=== PATIENT | female | born 1995 | race Caucasian/White ===

== ENCOUNTER 2019-05-08 17:11 | Emergency (ER) | payer BC ==
[2019-05-08 17:24] VITALS: BP 153/91
[2019-05-08] MEDS ORDERED: Ibuprofen TAB* 600 MG PO ONE (17:32)
--- NOTE | 2019-05-08 17:33 | ED ---
Lower Extremity - HPI Summary HPI Summary: 23 yr old female with the complaint of left knee pain. Onset of pain was . She states she does not know a specific event that caused this, but years ago she injured the same knee on a hay wagon, but it got better on its own. She states she does a lot of bending and squatting at work at times. She state the pain in the left knee has gotten worse over the past 5 days. She has increased swelling most notably in the suprpatellar area and to the lateral area of the knee. no bruising, No redness. She feels the outside of the knee is slightly warm. She has no real pain walking on her knee, but she has some pain with flexion of the left knee, and she hears an occasional clicking with flexion and extending. She has no other complaints. - History of Current Complaint Chief Complaint: UCLowerExtremity Stated Complaint: LEFT KNEE COMPLAINT Time Seen by Provider: 05/08/19 17:25 Hx Last Menstrual Period: 05/01/19 Pain Intensity: 5 - Allergies/Home Medications Allergies/Adverse Reactions: Allergies Allergy/AdvReac Type Severity Reaction Status Date / Time latex Allergy Rash Verified 05/08/19 17:19 Home Medications: Home Medications Ibuprofen TAB* [Advil TAB*] 1 tab PO ONCE 05/08/19 [History Confirmed 05/08/19] PMH/Surg Hx/FS Hx/Imm Hx Infectious Disease History: No Infectious Disease History: Denies: Traveled Outside the [place] in Last 30 Days - Family History Known Family History: Positive: None - Social History Occupation: Employed Full-time Alcohol Use: Weekly Substance Use Type: Reports: None Smoking Status (MU): Light Every Day Tobacco Smoker Type: Cigarettes Amount Used/How Often: 3-6 cigarettes daily Length of Time of Smoking/Using Tobacco: 2 years Review of Systems Constitutional: Negative Positive: Other - left knee pain All Other Systems Reviewed And Are Negative: Yes Physical Exam Triage Information Reviewed: Yes Vital Signs On Initial Exam: Initial Vitals Temp Pulse Resp BP Pulse Ox 98.9 F 96 16 153/91 97 05/08/19 17:20 05/08/19 17:20 05/08/19 17:20 05/08/19 17:20 05/08/19 17:20 Vital Signs Reviewed: Yes Appearance: Positive: Well-Appearing, No Pain Distress Skin: Positive: Warm, Skin Color Reflects Adequate Perfusion Head/Face: Positive: Normal Head/Face Inspection Eyes: Positive: EOMI ENT: Positive: Normal ENT inspection Neck: Positive: Nontender Respiratory/Lung Sounds: Positive: Clear to Auscultation, Breath Sounds Present Cardiovascular: Positive: RRR, Pulses are Symmetrical in both Upper and Lower Extremities. Negative: Murmur Musculoskeletal: Positive: Strength/ROM Intact, Other - left suprpatellar effusion present. She has increased pain with full flexion of the knee. Extension does not seem to affect it. She has a steady gait and does not appear in pain walking. She has no popliteal pain.. Negative: Edema Left, Edema Right Neurological: Positive: Sensory/Motor Intact, Alert, Oriented to Person Place, Time, CN Intact II-III, Normal Gait, Speech Normal Psychiatric: Positive: Normal, Affect/Mood Appropriate Diagnostics - Vital Signs Vital Signs Temp Pulse Resp BP Pulse Ox 05/08/19 17:20 98.9 F 96 16 153/91 97 - Laboratory Lab Statement: Any lab studies that have been ordered have been reviewed, and results considered in the medical decision making process. - Radiology left knee Radiology Interpretation Completed By: ED Physician - joint effusion present. Lower Extremity Course/Dx - Course Course Of Treatment: 23 yr old with joint effusion that is mild and not really worse with walking or weight bearing. It may be related to her remote injury from years ago. I do not feel this is a septic joint, and the patient has clicking in the knee and pain mostly in the lower quadraceps area. She will be given ortho phone number for follow up. She will likely need an MRI as an outpatient. - Diagnoses Provider Diagnoses: Internal derangement of left knee, Knee effusion, left, Hypertension Discharge ED - Sign-Out/Discharge Documenting (check all that apply): Patient Departure All imaging exams completed and their final reports reviewed: No - Discharge Plan Condition: Good Disposition: HOME Patient Education Materials: Knee Pain (ED), Swollen Joint (ED) Referrals: No Primary Care Phys,NOPCP [Primary Care Provider] - Shaheen Elizabeth MD [Medical Doctor] - 2 Days [facility] [Outside] - 2 Days - Billing Disposition and Condition Condition: GOOD Disposition: Home
--- NOTE | 2019-05-09 07:55 | UC ---
- Progress Note Progress Note: xray report left knee: FINDINGS: The visualized bones are well-corticated and properly aligned. The joint spaces are properly maintained. There is no radiographic evidence of joint effusion. There is no acute fracture, dislocation or other focal bony abnormality. IMPRESSION: No radiographically apparent abnormality of the left knee. If the patient's symptoms persist, follow -up imaging is recommended. Course/Dx - Diagnoses Provider Diagnoses: Internal derangement of left knee, Knee effusion, left, Hypertension Discharge ED - Sign-Out/Discharge Documenting (check all that apply): Patient Departure All imaging exams completed and their final reports reviewed: Yes - Discharge Plan Condition: Good Disposition: HOME Patient Education Materials: Knee Pain (ED), Swollen Joint (ED) Forms: *Work Release Referrals: [facility] [Outside] - 2 Days Shaheen Elizabeth MD [Medical Doctor] - 2 Days No Primary Care Phys,NOPCP [Primary Care Provider] - - Billing Disposition and Condition Condition: GOOD Disposition: Home
== END 2019-05-08 18:21 | disposition home or self-care (01) ==
LOC: UCCORT 17:11
DX: R05 Cough (principal); J34.89 Other specified disorders of nose and nasal sinuses; M79.10 Myalgia, unspecified site
CPT/HCPCS: 99202; A9270-GY; G0463